=== PATIENT | male | born 1945 | race Caucasian/White ===

== ENCOUNTER → 2018-11-22 | Outpatient (CLI) | payer MEDICARE ==
[2018-11-22 09:49] LABS: CHOLESTEROL RISK RATIO 2.672 (<5)
== END ==
LOC: M LAB 08:31
PROVIDERS: ATTEND Internal Medicine Interventional Cardiology
DX: E78.00 Pure hypercholesterolemia, unspecified (principal)

== ENCOUNTER → 2019-04-10 | Outpatient (CLI) | payer MEDICARE ==
[2019-04-10 12:54] LABS: HEMATOCRIT 43.3 % (42.0-52.0); HEMOGLOBIN 14.7 g/dl (13.5-17.5); MEAN CORPUSCULAR HEMOGLOBIN 33.8 pg (27.0-33.0); MEAN CORPUSCULAR HGB CONC 33.9 g/dl (32.0-36.5); MEAN CORPUSCULAR VOLUME 99.5 fl (80.0-96.0); PLATELET COUNT, AUTOMATED 184 10^3/uL (150-450); RED BLOOD COUNT 4.35 10^6/uL (4.30-6.10); WHITE BLOOD COUNT 4.5 10^3/uL (4.0-10.0)
--- NOTE | 2019-04-10 13:09 | REP ---
PA and lateral chest: Comparison is 10/05/2015. The lung lundberg are clear. The cardiac size is normal. The cheri, mediastinum, and skeletal structures are unremarkable. Impression: Negative PA and lateral chest. There is no interval change. Electronically Signed by Leonel Kaufman MD 04/10/2019 12:59 P
[2019-04-10 13:21] LABS: HEMOGLOBIN A1c 5.9 %
[2019-04-10 13:24] LABS: ALBUMIN 3.7 GM/DL (3.2-5.2); ALT/SGPT 23 U/L (12-78); BILIRUBIN,TOTAL 0.8 MG/DL (0.2-1.0); BLOOD UREA NITROGEN 23 MG/DL (7-18); CALCIUM LEVEL 8.9 MG/DL (8.8-10.2); CARBON DIOXIDE LEVEL 26 MEQ/L (21-32); CHLORIDE LEVEL 111 MEQ/L (98-107); CHOLESTEROL LEVEL 159 MG/DL (<200); CHOLESTEROL RISK RATIO 2.564 (<5); GLOMERULAR FILTRATION RATE > 60.0 (>42); GLUCOSE, FASTING 101 MG/DL (70-100); HDL CHOLESTEROL 62 MG/DL (>40); LDL CHOLESTEROL 78 MG/DL (<100); NON-HDL-C 97 MG/DL; POTASSIUM SERUM 4.1 MEQ/L (3.5-5.1); SODIUM LEVEL 143 MEQ/L (136-145); TESTOSTERONE 558 NG/DL (241-827); TOTAL PROTEIN 6.9 GM/DL (6.4-8.2); TRIGLYCERIDES LEVEL 94 MG/DL (<150)
--- NOTE | 2019-04-10 15:34 | ECGEPIP ---
[facility] Test Date: 2019-04-10 Pat Name: PHAN ODELL Department: Room: - Gender: Male [employer]: RITA : [id number] Requested By: Blanca Parikh Order Number: [id number] Reading MD: Mook Ponce Measurements Intervals [place] Rate: 60 P: 6 [place]: 150 QRS: -17 QRSD: 86 T: 15 QT: 400 QTc: 401 Interpretive Statements Normal sinus rhythm Normal EKG No significant change when compared to prior tracing of 10/05/2015 Electronically Signed on 04-10-2019 15:34:00 EST by Mook Ponce
== END ==
LOC: M LAB 12:16
PROVIDERS: ATTEND Family Medicine
DX: I10 Essential (primary) hypertension (principal)

== ENCOUNTER → 2021-08-18 | Outpatient (CLI) | payer MEDICARE ==
[2021-08-18 10:38] LABS: CHOLESTEROL RISK RATIO 2.963 (<5)
== END ==
LOC: M LAB 09:18
PROVIDERS: ATTEND Internal Medicine Cardiovascular Disease
DX: E78.5 Hyperlipidemia, unspecified (principal)

== ENCOUNTER 2023-05-31 09:14 | Day surgery (SDC) | payer MEDICARE ==
[~2023-05-31] VITALS: Ht 170.2 cm; Wt 73.5 kg
[~2023-05-31 09:14] MED LIST: ATOR40TA75 PO; BAYE81TA7 PO; D 1010004 PO; HAIRTAB15 PO; METO1TAB32 PO; NS 1,000 ML IV ONE
[2023-05-31] MEDS ORDERED: propofoL 200 MG/20 ML VIAL As Ordered ONE (12:03)
[2023-05-31] MEDS ORDERED: LIDOCAINE 2% 100MG/5ML SDV (FOR ANES.) As Ordered ONE (12:03)
[2023-05-31 12:07] VITALS: BP 160/67; O2SAT 97
== END 2023-05-31 12:12 | disposition home or self-care (01) ==
LOC: M OPP 09:14
PROVIDERS: ATTEND Surgery
DX: Z12.11 Encounter for screening for malignant neoplasm of colon (principal); K63.5 Polyp of colon; Z79.02 Long term (current) use of antithrombotics/antiplatelets; Z79.82 Long term (current) use of aspirin; Z79.899 Other long term (current) drug therapy

== ENCOUNTER → 2024-02-11 | Outpatient (REF) | payer MEDICARE ==
[~2024-02-11] MED LIST changes: -NS 1,000 ML IV ONE
== END ==
LOC: M LAB REF 12:54
PROVIDERS: ATTEND Family Medicine
DX: R10.11 Right upper quadrant pain (principal)

== ENCOUNTER 2024-08-07 06:04 | Day surgery (SDC) | payer MEDICARE ==
[~2024-08-07] VITALS: Ht 170.2 cm; Wt 74.4 kg
[2024-08-07] MEDS ORDERED: LR 1,000 ML IV SCH (06:30)
[2024-08-07] MEDS: ceFAZolin 2 GM/D5W 50 ML IV BAG As Ordered ONE (07:50)
[2024-08-07] MEDS ORDERED: SUGAMMADEX SODIUM 500 MG/5 ML VIAL (BRIDION) As Ordered ONE (08:02)
[2024-08-07] MEDS ORDERED: fentaNYL 250 MCG/5 ML INJECTION As Ordered ONE (08:02)
[2024-08-07] MEDS ORDERED: ACETAMINOPHEN 1000MG/100ML IV BAG As Ordered ONE (08:02)
[2024-08-07] MEDS ORDERED: LIDOCAINE 2% 100MG/5ML SDV (FOR ANES.) As Ordered ONE (08:02)
[2024-08-07] MEDS ORDERED: ONDANSETRON 4MG 2ML VIAL As Ordered ONE (08:02)
[2024-08-07] MEDS ORDERED: MIDAZOLAM INJ 2MG/2ML VIAL As Ordered ONE (08:02)
[2024-08-07] MEDS ORDERED: ROCURONIUM BROMIDE 50MG/5ML VIAL As Ordered ONE (08:02)
[2024-08-07] MEDS ORDERED: propofoL 200 MG/20 ML VIAL As Ordered ONE (08:02)
[2024-08-07] MEDS ORDERED: hydrALAZINE 20MG/ML 1ML VIAL As Ordered ONE (08:19)
[2024-08-07] MEDS ORDERED: ONDANSETRON 4MG 2ML VIAL IV PRN (08:55)
[2024-08-07] MEDS ORDERED: oxyCODONE 5MG TAB PO PRN (08:55)
[2024-08-07] MEDS ORDERED: fentaNYL 100 MCG/2 ML INJECTION IV PRN (08:55)
[2024-08-07 10:25] VITALS: BP 130/78; TEMP 97.9; O2SAT 98
== END 2024-08-07 10:39 | disposition home or self-care (01) ==
LOC: M SDC 06:04
PROVIDERS: ATTEND Surgery
DX: K40.90 Unilateral inguinal hernia, without obstruction or gangrene, not specified as recurrent (principal); I25.10 Atherosclerotic heart disease of native coronary artery without angina pectoris; I10 Essential (primary) hypertension; G47.30 Sleep apnea, unspecified; Z95.5 Presence of coronary angioplasty implant and graft; Z79.899 Other long term (current) drug therapy
CPT/HCPCS: 49505; 93005; C1781; J0131; J0360; J0665; J0690; J1100; J2250; J2405; J3010; S2900